=== PATIENT | female | born 1985 | race Caucasian/White ===

== ENCOUNTER 2020-04-12 14:37 | Day surgery (SDC) | payer OTHER ==
[~2020-04-12] VITALS: Ht 162.6 cm; Wt 69.8 kg
[2020-04-12] MEDS ORDERED: MACA500C PO (15:13)
[2020-04-12] MEDS ORDERED: VITEX (15:13)
[2020-04-12] MEDS ORDERED: VITAMIN D (15:13)
[2020-04-12] MEDS ORDERED: SPIR25TA5 PO (15:13)
[2020-04-12] MEDS ORDERED: ESCI10TA PO (15:13)
[2020-04-12] MEDS ORDERED: CHLORHEXIDINE 15 ML UDC ONE (15:21)
[2020-04-12 15:24] LABS: HCG UR SG 1.019 (1.003-1.030)
[2020-04-12 15:26] VITALS: BP 113/75
[2020-04-12] MEDS ORDERED: PLEASE ENTER ALLERGIES MC SCH (15:30)
[2020-04-12] MEDS ORDERED: CHLORHEXIDINE 15 ML UDC MM ONE (15:30)
[2020-04-12] MEDS ORDERED: LACTATED RINGERS 1,000 ML IV SCH (15:30)
[2020-04-12] MEDS ORDERED: BUPIVACAINE/PF 0.5% ONE (16:00)
[2020-04-12] MEDS ORDERED: EPINEPHRINE 1 MG/ML, 1ML ONE (16:00)
[2020-04-12] MEDS ORDERED: FENTANYL PF 100 MCG/2ML ONE (16:22)
[2020-04-12] MEDS ORDERED: MIDAZOLAM 1 MG/ML, 2ML ONE (16:22)
[2020-04-12] MEDS ORDERED: PROPOFOL 50 ML ONE (16:24)
[2020-04-12] MEDS ORDERED: CEFAZOLIN 1,000 MG ONE (16:30)
[2020-04-12] MEDS ORDERED: ONDANSETRON 2MG/ML, 2ML ONE (16:30)
[2020-04-12] MEDS ORDERED: LIDOCAINE/PF 1%, 30ML ONE (16:30)
[2020-04-12] MEDS ORDERED: LIDOCAINE 1%-EPI 1:100K, 20ML INFIL ONE (16:42)
[2020-04-12] MEDS ORDERED: PROMETHAZINE 25 MG SUPP PR PRN (17:00)
[2020-04-12] MEDS ORDERED: FENTANYL PF 100 MCG/2ML IV PRN (17:00)
[2020-04-12] MEDS ORDERED: ONDANSETRON 2MG/ML, 2ML IVPush PRN (17:00)
[2020-04-12] MEDS ORDERED: PROMETHAZINE 25 MG/ML, 1ML IVPush PRN (17:00)
[2020-04-12] MEDS ORDERED: ACETAMINOPHEN 325 MG TABLET PO PRN (17:00)
[2020-04-12] MEDS ORDERED: OXYcodone 5 MG/5 ML ORAL.SOL UDC PO PRN (17:00)
== END 2020-04-12 18:30 | disposition home or self-care (01) ==
LOC: OR 14:37 → MERGE 16:30 → OR 18:30
PROVIDERS: ATTEND Orthopaedic Surgery
DX: S61.442A Puncture wound with foreign body of left hand, initial encounter (principal); Z79.899 Other long term (current) drug therapy; Z98.890 Other specified postprocedural states; W45.8XXA Other foreign body or object entering through skin, initial encounter; W22.8XXA Striking against or struck by other objects, initial encounter; Y93.89 Activity, other specified; Y92.89 Other specified places as the place of occurrence of the external cause; Y99.8 Other external cause status
CPT/HCPCS: 10120; 81025; J0171; J0690; J2250; J2405; J2704; J3010; J7120